=== PATIENT | female | born 1975 | race Caucasian/White ===

== ENCOUNTER 2023-03-22 17:18 | Emergency (ER) | payer MEDICAID, OTHER ==
[~2023-03-22] VITALS: Ht 172.7 cm; Wt 59.0 kg
[2023-03-22 17:22] VITALS: BP 158/97; PULSE 76; RESP 16; TEMP 98.8; O2SAT 97
[2023-03-22 18:29] LABS: BASOPHILS % 0.4 % (0.0-2.0); EOSINOPHILS % 1.6 % (0.0-5.0); HEMATOCRIT. 38.8 % (36.0-48.0); HEMOGLOBIN. 12.6 g/dL (12.0-16.0); LYMPHOCYTES % 26.9 % (20.0-50.0); MEAN CORPUSCULAR HEMOGLOBIN 28.9 pg (28.0-32.0); MEAN CORPUSCULAR HGB CONC 32.6 g/dL (31.0-37.0); MEAN CORPUSCULAR VOLUME 88.6 fL (81.0-99.0); MEAN PLATELET VOLUME 6.5 fl (7.4-10.4); MONOCYTES % 6.2 % (2.0-8.0); NEUTROPHILS % 64.9 % (40.0-76.0); PLATELET 389 x1000/uL (130-400); RED BLOOD CELL COUNT 4.38 mill/uL (4.2-5.4); WHITE BLOOD COUNT 9.9 x1000/uL (4.5-11.0)
[2023-03-22 18:49] LABS: HCG SCREEN NEGATIVE
[2023-03-22 18:58] LABS: ALANINE AMINOTRANSFERASE 42 IU/L (10-49); ALBUMIN 4.1 g/dL (3.2-4.8); ASPARTATE AMINOTRANSFERASE 24 IU/L (<34); BILIRUBIN TOTAL 0.5 mg/dL (0.1-1.0); CALCIUM 9.2 mg/dL (8.7-10.4); CARBON DIOXIDE 27 mEq/L (21-32); CHLORIDE 105 mEq/L (98-107); CREATININE 0.7 mg/dL (0.6-1.0); GLUCOSE 90 mg/dL (70-105); POTASSIUM 3.5 mEq/L (3.5-5.1); PROTEIN TOTAL 6.9 g/dL (6.0-8.3); SODIUM 139 mEq/L (136-145); UREA NITROGEN BLOOD 16 mg/dL (9-23)
[2023-03-22 20:02] LABS: ETHANOL BLOOD < 10 mg/dL (<10)
== END 2023-03-23 01:06 | disposition home or self-care (01) ==
LOC: ER 17:18
DX: R55 Syncope and collapse (principal); F19.129 Other psychoactive substance abuse with intoxication, unspecified
CPT/HCPCS: 36415; 80053; 80320; 84703; 85025; 93005; 99284; G0480